=== PATIENT | female | born 1995 | race Caucasian/White ===

== ENCOUNTER 2025-04-25 06:20 | Day surgery (SDC) | payer OTHER, SELFPAY | END 2025-04-25 15:51 | disposition home or self-care (01) | LOC: GI 06:20 | PROVIDERS: ATTENDING PHYSICIAN Internal Medicine Gastroenterology | DX: Z12.11 Encounter for screening for malignant neoplasm of colon (principal); Z80.0 Family history of malignant neoplasm of digestive organs; Z83.719 Family history of colon polyps, unspecified | CPT/HCPCS: G0105 ==

== ENCOUNTER → 2025-08-29 14:35 | Outpatient (REF) | payer OTHER, SELFPAY | LOC: RAD 14:35 | PROVIDERS: ATTENDING PHYSICIAN Student in an Organized Health Care Education/Training Program | DX: O26.851 Spotting complicating pregnancy, first trimester (principal) | CPT/HCPCS: 76801; 76817 ==

== ENCOUNTER → 2025-10-09 08:14 | Outpatient (REF) | payer OTHER, SELFPAY | LOC: PNTC 08:14 | PROVIDERS: ATTENDING PHYSICIAN Obstetrics & Gynecology | DX: Z36.0 Encounter for antenatal screening for chromosomal anomalies (principal); Z36.82 Encounter for antenatal screening for nuchal translucency | CPT/HCPCS: 76801; 76813 ==

== ENCOUNTER → 2025-10-13 13:30 | Outpatient (REF) | payer OTHER, SELFPAY | LOC: PNTC 13:30 | PROVIDERS: ATTENDING PHYSICIAN Obstetrics & Gynecology | DX: Q99.2 Fragile X chromosome (principal); Z84.81 Family history of carrier of genetic disease | CPT/HCPCS: 36415; 59015; 76801; 76945 ==